=== PATIENT | female | born 1935 | race Caucasian/White ===

== ENCOUNTER 2017-01-21 14:59 | Emergency (ER) | payer OTHER ==
[~2017-01-21] VITALS: Ht 165.1 cm; Wt 103.7 kg
[2017-01-21 15:18] LABS: BASOPHIL COUNT 0.1 K/uL (0-0.1); EOSINOPHIL (%) 2.6 % (0-5); EOSINOPHIL COUNT 0.6 K/uL (0-0.3); HEMATOCRIT 36.5 % (36.0-46.0); IMMATURE GRANULOCYTE (%) 3.8 % (0.0-0.7); IMMATURE GRANULOCYTE COUNT 0.8 K/uL; INSTRUMENT ABS NEUTROPHIL CT 16.6 K/uL; LYMPHOCYTE COUNT 1.9 K/uL (1.0-2.8); MCH 30.4 PG (29.0-34.0); MCHC 32.1 G/DL (30.0-36.0); MCV 94.8 FL (83-99); MEAN PLAT.VOLUME 11.9 uM^3 (9.5-12.4); MONOCYTE (%) 5.6 % (3-12); MONOCYTE COUNT 1.2 K/uL (0-0.8); NEUTROPHIL (%) 78.8 % (45-76); NEUTROPHIL COUNT 16.6 K/uL (1.8-6.4); PLATELET COUNT 210 K/uL (156-360); RBC DIS.WIDTH-SD 44.5 % (39-53); RED BLOOD COUNT 3.85 M/uL (3.80-5.20); WHITE BLOOD COUNT 21.1 K/uL (4.1-10.2)
[2017-01-21 15:26] LABS: AMYLASE 100 IU/L (1-118); CHLORIDE 103 mEq/L (99-109); POTASSIUM 4.6 mEq/L (3.7-5.4); SODIUM 139 mEq/L (136-147)
[2017-01-21 15:28] LABS: GLUCOSE 292 mg/dL (70-99)
[2017-01-21 15:30] LABS: ANION GAP 14 MEQ/L (2-14)
[2017-01-21 15:31] LABS: SERUM ETHYL ALCOHOL < 10 mg/dL
[2017-01-21 15:32] LABS: GFR ESTIMATE (CALCULATED) 36 mL/min/
[2017-01-21 15:33] LABS: UREA NITROGEN (BUN) 25 mg/dL (9-23)
[2017-01-21 15:35] LABS: LIPASE 20 U/L (1.0-51.0)
[2017-01-21 16:16] LABS: CREATINE KINASE 281 IU/L (1-294); TOTAL CK 281 IU/L (1-294)
[2017-01-21 16:18] LABS: TROP-I INTERPRETATION NEGATIVE; TROPONIN-I 0.01 ng/mL (0.0-0.30)
[2017-01-21 16:21] LABS: CK-MB 4.1 ng/mL (0.0-4.9)
== END 2017-01-21 20:07 | disposition short-term general hospital (02) ==
LOC: TRA 14:59
PROVIDERS: Emergency Medicine
DX: S22.5XXA Flail chest, initial encounter for closed fracture (principal); S27.1XXA Traumatic hemothorax, initial encounter; T79.7XXA Traumatic subcutaneous emphysema, initial encounter; S32.592A Other specified fracture of left pubis, initial encounter for closed fracture; S32.19XA Other fracture of sacrum, initial encounter for closed fracture; V43.54XA Car driver injured in collision with van in traffic accident, initial encounter; S02.113A Unspecified occipital condyle fracture, initial encounter for closed fracture; S37.22XA Contusion of bladder, initial encounter; S30.0XXA Contusion of lower back and pelvis, initial encounter; E11.65 Type 2 diabetes mellitus with hyperglycemia; Z79.4 Long term (current) use of insulin; I48.2 Chronic atrial fibrillation; Z79.01 Long term (current) use of anticoagulants; S27.321A Contusion of lung, unilateral, initial encounter; I10 Essential (primary) hypertension; E78.5 Hyperlipidemia, unspecified; E03.9 Hypothyroidism, unspecified; Z88.8 Allergy status to other drugs, medicaments and biological substances
CPT/HCPCS: 70450; 71010; 71260; 72125; 72129; 72132; 72170; 74177; 80048; 81003; 82150; 82550; 82553; 83605; 83690; 83880; 84484; 85025; 86850; 86870; 86900; 86901; 86905; 86920; 93005; C9132; G0480; J2270